=== PATIENT | male | born 1950 | race Caucasian/White ===

== ENCOUNTER 2017-03-08 08:00 | Outpatient (CLI) | payer OTHER | END 2017-03-08 08:01 | disposition home or self-care (01) | DX: M19.90 Unspecified osteoarthritis, unspecified site (principal); E78.5 Hyperlipidemia, unspecified; Z12.5 Encounter for screening for malignant neoplasm of prostate ==

== ENCOUNTER 2017-03-20 13:02 | Outpatient (CLI) | payer OTHER | END 2017-03-20 13:03 | disposition home or self-care (01) | DX: M19.042 Primary osteoarthritis, left hand (principal); M19.041 Primary osteoarthritis, right hand; M79.5 Residual foreign body in soft tissue ==

== ENCOUNTER 2021-02-04 11:22 | Emergency (ER) | payer MEDICARE, OTHER ==
[2021-02-04] MEDS ORDERED: HYDROcod/ACETAM 5/325 MG TABLET PO STA (11:43)
[2021-02-04] MEDS ORDERED: TETANUS/DIPHTHERIA/PERTUSSIS 0.5 ML SYRINGE IM ONE (11:43)
[2021-02-04] MEDS ORDERED: BUFFERED LIDOCAINE 10 ML SYRINGE SUBQ STA (11:44)
[2021-02-04] MEDS ORDERED: BACITRACIN ZINC OINT 1 PACKET TOP STA (11:44)
[2021-02-04] MEDS ORDERED: ceFAZolin 1 GM VIAL IM STA (11:47)
--- NOTE | 2021-02-04 11:48 | ED Physician Documentation ---
History of Present Illness - Stated complaint Stated Complaint: L HAND LAC - Chief complaint Chief Complaint: Laceration - Additonal information Additional information: 70-year-old male presents to the emergency department for evaluation of a left distal thumb injury. He was using a drill press and impaled his thumb on the press. He has a laceration that splits the lateral side of the cuticle nearly amputating the entire fingertip. Unknown last tetanus. Patient is not a diabetic. Right-hand dominant. Review of Systems Eyes: reports: Reviewed and negative Ears: reports: Loss of hearing Nose: reports: Reviewed and negative Cardiac: reports: Reviewed and negative Respiratory: reports: Reviewed and negative GI: reports: Reviewed and negative : reports: Reviewed and negative Skin: reports: Laceration (s) (left thumb) Musculoskeletal: reports: Reviewed and negative Psychiatric: reports: Reviewed and negative Endocrine: reports: Reviewed and negative PD PAST MEDICAL HISTORY - Past Medical History Past Medical History: Yes Cardiovascular: High cholesterol - Past Surgical History Past Surgical History: No - Present Medications Home Medications: Ambulatory Orders Medication Instructions Recorded Confirmed HYDROcod/ACETAM 5/325 [[place] 5/325] 1 - 2 tablet PO Q6H PRN #14 tablet 02/04/21 cephALEXin [Keflex] 500 mg PO Q6H #28 02/04/21 - Allergies Allergies/Adverse Reactions: Allergies Allergy/AdvReac Type Severity Reaction Status Date / Time No Known Drug Allergies Allergy Verified 02/04/21 11:33 - Social History Does the pt smoke?: No Smoking Status: Never smoker Does the pt drink ETOH?: Yes - Immunizations Immunizations are current?: Yes - POLST Patient has POLST: No PD ED PE EXPANDED - General General: Alert, No acute distress - Cardiac Cardiac: Cap refill < 2 sec - Extremities Extremities: Left finger(s) (3.5 cm complex laceration left lateral middle thumb surrounding the nailbed with exposed bone noted. Distal sensation is preserved. Extensive ecchymosis of the digit noted. Patient is able to flex and extend at DIP), Other (2+ left radial pulse; 1+ ulnar pulse) DEANN UE/Hands Visual: 1 - laceration Results - Vitals Vitals: Vital Signs - 24 hr 02/04/21 02/04/21 11:26 12:57 Temperature 36.3 C L 36.1 C L Heart Rate 88 61 Respiratory 18 18 Rate Blood Pressure 142/69 H 140/79 H O2 Saturation 99 100 Oxygen O2 Source Room air - Rads (name of study) left thumb Radiology: Final report received (Comminuted and mildly displaced fractures of the left distal phalanx involving both the tuft and the base without intra- articular extension.) Procedures - Laceration (location) left thumb Length in cm: 3.5 Wound type: Stellate, Irregular, Into muscle, Contaminated, Exposure of bone, Exposure of cartilage Neurovascular status: Sensory intact, Motor intact, Vascular intact Tendon involvement: Tendon intact Anesthesia: LET Wound preparation: Chlorhexadine, Irrigated copiously NS, Debrided moderately, W ound explored Skin layer closure: Nylon, Sutures - enter # (9) Other: Patient tolerated well, Neurovascular intact, Tetanus booster given PD MEDICAL DECISION MAKING - ED course Complexity details: reviewed results, re-evaluated patient, considered differential ED course: 70-year-old male presents emergency department for evaluation of a complex left thumb laceration sustained when using a drill press this afternoon. The drill entered the thumb at the corner of the left lateral cuticle and the nail bed around the thumb. X-ray does show comminuted displaced distal phalanx fracture thus this is considered an open fracture. This gentleman was given 1 g of Ancef IM before we closed him his tetanus was also updated. I did discuss this wound with Dr. Carrillo the on-call orthopedic surgeon who advised bedside wound closure. Post closure the patient was able to flex and extend his thumb. He will be discharged with a prescription for Keflex for 1 week as well as hydrocodone. Given the complex wound closure I have advised him to come back to the emergency department tomorrow for a wound check. I have placed a dressing on his thumb at this time that prevents him from moving the digit though at wound check tomorrow he will need to be placed in a immobilizing splint Departure - Departure Disposition: 01 Home, Self Care Clinical Impression: Fracture of distal phalanx of thumb Qualifiers: Encounter type: initial encounter Fracture type: open Fracture alignment: disp laced Laterality: left Qualified Code(s): S62.522B - Displaced fracture of distal phalanx of left thumb, initial encounter for open fracture Laceration of thumb with damage to nail Qualifiers: Encounter type: initial encounter Foreign body presence: without foreign body Laterality: left Qualified Code(s): S61.112A - Laceration without foreign body of left thumb with damage to nail, initial encounter Condition: Stable Record reviewed to determine appropriate education?: Yes Instructions: ED Fx Finger Open Follow-Up: Alban Baca MD [Provider Admit Priv/Credential] - Prescriptions: cephALEXin [Keflex] 500 mg PO Q6H #28 HYDROcod/ACETAM 5/325 [[place] 5/325] 1 - 2 tablet PO Q6H PRN #14 tablet PRN Reason: Pain Comments: Time you have an open fracture of your left thumb after the drill press lacerated your thumb. This wound and fracture will take a number of weeks to heal. I would like you to return tomorrow to the emergency department for a wound check. I have prescribed hydrocodone to help with pain control. Please do not drive if taking this will legally intoxicated you. It is important that you fill the prescription for the Keflex and and begin taking 4 times daily for the next week. In addition to this please call the orthopedics department tomorrow to arrange follow-up for reevaluation of this fracture. Your sutures should be removed in 7 to 10 days.
--- NOTE | 2021-02-04 12:07 | XRAY Report ---
PROCEDURE: Finger(s) LT INDICATIONS: r/o open fx TECHNIQUE: AP hand, 2 views of the left first finger(s) acquired. COMPARISON: None FINDINGS: Comminuted mildly displaced fractures of the left first distal phalanx involving the tuft and base. N o intra-articular extension into the interphalangeal joint. Adjacent soft tissue swelling. Mild degen erative changes at the first CMC and MCP. IMPRESSION: Comminuted and mildly displaced fractures of the left distal phalanx involving both the tuft and the base without intra-articular extension. Reviewed by: Jarad Mooney MD on 02/04/2021 12:06 PM PDT Approved by: Jarad Mooney MD on 02/04/2021 12:06 PM PDT Station ID: [id number]
[2021-02-04 12:57] VITALS: BP 140/79
--- NOTE | 2021-02-04 13:29 | XRAY Report ---
PROCEDURE: Finger(s) LT INDICATIONS: eval fx after sewing TECHNIQUE: 3 views of the left thumb acquired. COMPARISON: Left thumb radiographs 02/04/2021. FINDINGS: Bones: Comminuted fracture of the distal tuft of the first distal phalanx is redemonstrated with impr won alignment. Degenerative changes are seen within the included interphalangeal joints as well as t he first metacarpophalangeal joint and first carpometacarpal joint. Soft tissues: No suspicious soft tissue calcifications. IMPRESSION: Improved alignment of the previously seen comminuted fracture of the first distal phalanx. Reviewed by: Benedict Farrar MD on 02/04/2021 12:28 PM SHANNEN Approved by: Benedict Farrar MD on 02/04/2021 12:28 PM SHANNEN Station ID: [id number]
== END 2021-02-04 13:09 | disposition home or self-care (01) ==
LOC: ED 11:22
DX: S62.522B Displaced fracture of distal phalanx of left thumb, initial encounter for open fracture (principal); W31.1XXA Contact with metalworking machines, initial encounter; Y93.89 Activity, other specified; Z23 Encounter for immunization; M18.12 Unilateral primary osteoarthritis of first carpometacarpal joint, left hand
CPT/HCPCS: 13132; 73140; 90471; 90715; 96372; 99283; A9270

== ENCOUNTER 2021-02-05 11:59 | Emergency (ER) | payer MEDICARE ==
[2021-02-05 12:06] VITALS: BP 125/77
--- NOTE | 2021-02-05 12:48 | ED Physician Documentation ---
History of Present Illness - Stated complaint Stated Complaint: FOLLOW UP - Chief complaint Chief Complaint: Laceration - Additonal information Additional information: 70-year-old male return to the emergency department for evaluation of left thumb wound/laceration. He had a complex open fracture of the distal thumb when he accidentally drilled it with a table drill. He was placed on Keflex and advised to return today for a wound check. He reports that his pain has been well controlled. He has not taken the hydrocodone instead use to CBD. No fevers. Please see wound note from previous visit Review of Systems Constitutional: reports: Reviewed and negative Cardiac: reports: Chest pain / pressure Respiratory: reports: Reviewed and negative GI: reports: Reviewed and negative : reports: Reviewed and negative Skin: reports: Laceration (s) (left thumb) Musculoskeletal: reports: Extremity pain (left thumb) Neurologic: reports: Reviewed and negative PD PAST MEDICAL HISTORY - Past Medical History Past Medical History: Yes Cardiovascular: High cholesterol - Past Surgical History Past Surgical History: No - Present Medications Home Medications: Ambulatory Orders Medication Instructions Recorded Confirmed HYDROcod/ACETAM 5/325 [[place] 5/325] 1 - 2 tablet PO Q6H PRN #14 tablet 02/04/21 cephALEXin [Keflex] 500 mg PO Q6H #28 02/04/21 - Allergies Allergies/Adverse Reactions: Allergies Allergy/AdvReac Type Severity Reaction Status Date / Time No Known Drug Allergies Allergy Verified 02/05/21 12:03 - Social History Does the pt smoke?: No Smoking Status: Never smoker Does the pt drink ETOH?: Yes Does the pt have substance abuse?: No - Immunizations Immunizations are current?: Yes - POLST Patient has POLST: No PD ED PE EXPANDED - Extremities Extremities: Left finger(s) (well approximated laceration that extends from the distal tip of thumb, medially through the nail bed and transverses the dorsum of thumb. no bleeding, erythema or drainage) Results - Vitals Vitals: Vital Signs - 24 hr 02/05/21 12:03 Temperature 36.6 C Heart Rate 60 Respiratory 16 Rate Blood Pressure 125/77 O2 Saturation 96 Oxygen O2 Source Room air PD MEDICAL DECISION MAKING - ED course Complexity details: re-evaluated patient, d/w patient ED course: 70-year-old male presents emergency department for wound check of a complex left thumb laceration and open fracture sustained yesterday after using a dual drill press. The laceration itself is well approximated. There is no serous drainage just a small amount of dried blood overlying the incision. Wound was dressed with Xeroform over the incision nonstick gauze and a splint to immobilize the digit. Patient does have a follow-up appointment scheduled for early next week with hand surgery through the [facility]. Patient will continue his Keflex. Daily dressing changes and emergent return precautions were discussed. Departure - Departure Disposition: 01 Home, Self Care Clinical Impression: Visit for wound check Comments: The laceration looks good. Once a day please change the dressing. Apply a thin layer of the yellow gauze over the incision itself then the nonstick pad and gauze. It is important that you immobilize your thumb and prevent it from moving this will allow the bone to heal. Continue to follow-up with the hand clinic at the [facility] next week. Continue your antibiotics if at any point you have fevers, redness milky drainage increased pain or concerns of infection return immediately to the ER.
== END 2021-02-05 12:56 | disposition home or self-care (01) ==
LOC: ED 11:59
DX: Z48.01 Encounter for change or removal of surgical wound dressing (principal); S62.522B Displaced fracture of distal phalanx of left thumb, initial encounter for open fracture; W31.1XXA Contact with metalworking machines, initial encounter
CPT/HCPCS: 99281; 99282